=== PATIENT | male | born 1965 ===

== ENCOUNTER 2017-12-28 13:12 | Day surgery (SDC) | payer OTHER ==
[2017-12-28] MEDS ORDERED: NS 1,000 ML IV ONE ×2 (13:43→13:58)
--- NOTE | 2017-12-28 13:43 | EDPHY ---
H & P <Randolph Navarro - Last Filed: 12/28/17 17:10> Smoking Status: Never smoked <Sarabjit Cleary - Last Filed: 12/28/17 20:49> Time Seen by Provider: 12/28/17 13:42 HPI/ROS: CHIEF COMPLAINT: Penile pain, hematuria, nausea HISTORY OF PRESENT ILLNESS: Patient had similar symptoms last year was treated at [facility]. He had CT scanning which did not show renal stone or kidney abnormality was treated with 2 separate courses of antibiotics for UTI in symptoms resolved. Today around 1:00 p.m. He was sitting on the toilet trying to go to the bathroom when he felt"a pop"or that"something twisted inside me"and started having hematuria. Associated with pain in his penis and dysuria. Symptoms severe associated with nausea. The no other sites of bleeding, no vomiting, no testicular symptoms. REVIEW OF SYSTEMS: Eye: no change in vision ENT: no sore throat Cardiac: no chest pain or syncope Pulmonary: no cough or SOB Abdomen: no vomiting, diarrhea, abdominal pain Musculoskeletal: no back pain Skin: no rash Neuro: no headache Constitutional: no fever : HPI A comprehensive 10 point review of systems is otherwise negative aside from elements mentioned in the history of present illness. PAST MEDICAL HISTORY: Previous UTI, hypertension, migraine Social history: Nonsmoker General Appearance: Alert and conversant, cooperative. Eyes: No scleral icterus. ENT, Mouth: Normal mucous membranes. Respiratory: Normal respiratory effort, breath sounds equal, lungs are clear to auscultation. Cardiovascular: Regular rate and rhythm. Gastrointestinal: Abdomen is soft and only mild suprapubic tender. Normal testicles, some hematuria from meatus, otherwise normal penis. Neurological: Alert, face symmetric, normal motor and sensory in extremities. Skin: Warm and dry, no rashes. Musculoskeletal: No peripheral edema. Psychiatric: Not agitated. Emergency Department course/MDM: Zofran 4 mg IV, IV fluids, i-STAT and CT scanning, urinalysis. Accepts antiemetics, declined pain medication on initial evaluation. 1413: Records from [facility] dated 05/31/2017 personally reviewed include E coli sensitive to cephalosporin and quinolones and Zosyn but resistant to Bactrim in Unasyn and ampicillin. Negative urine for gonorrhea and chlamydia. He had CT scanning at that time which just showed thickened bladder consistent with urinary tract infection. Signed out to Melanie with imaging pending. UA shows hematuria without pyuria, doubt UTI. (Sarabjit Cleary) Constitutional: Initial Vital Signs Temperature (C) 36.7 C 12/28/17 13:28 Heart Rate 81 12/28/17 13:28 Respiratory Rate 18 12/28/17 13:28 Blood Pressure 129/85 H 12/28/17 13:28 O2 Sat (%) 95 12/28/17 13:28 O2 Delivery Mode Room Air O2 (L/minute) 10 Allergies/Adverse Reactions: codeine [Codeine] Allergy (Mild, Verified 02/27/12 10:54) STOM UPSET cephalexin monohydrate [From Keflex] Allergy (Unknown, Verified 02/27/12 10:54) STOM UPSET Home Medications: Medication Instructions Recorded Lisinopril [Zestril 5 mg (*)] 5 mg PO DAILY 02/27/12 SUMAtriptan [Imitrex Nasal [place]] 20 mg NASAL ONCE 02/27/12 NORTRIPTYLINE HCL [Pamelor 75 mg] 75 mg PO 06/21/13 Propranolol 06/21/13 Atorvastatin Calcium 20 mg DAILY 12/28/17 Hydrocodone/Acetaminophen [[place] 1 - 2 tab PO Q4H PRN #20 tab 12/28/17 5/325 (*)] Medical Decision Making - Diagnostics Imaging: Discussed imaging studies w/ scallop binder Radiologist, I viewed and interpreted images myself <Randolph Navarro - Last Filed: 12/28/17 17:10> <Sarabjit Cleary - Last Filed: 12/28/17 20:49> - Diagnostics Imaging Results: Imaging Impressions Abdomen CT 12/28/17 13:59 Impression: No evidence for hydronephrosis or nephrolithiasis. Nonspecific calcification in the prostate. No evidence for bladder calculus. Results discussed with Dr. Randolph Navarro on 28 December 2017 at 1450 hours. Cystogram 12/28/17 14:57 Impression: Posterior tear of the bulbous urethra, with extravasation of contrast into the base of the penis. Findings and recommendations discussed with Emergency Department physician, Randolph Navarro M.D., at 1610 hours, on December 28, 2017. Final report concurs with initial preliminary interpretation. ED Course/Re-evaluation: This patient was turned over to me at change of shift. I just took the CT report from Dr. Fransisco Owens. Study: CT of the abdomen and pelvis with IV contrast Indication: Painful hematuria Results: CT scan of the abdomen and pelvis was obtained. The results of the study are no acute process explaining painful hematuria. The study was read by the radiologist, Dr. Fransisco Owens. I viewed the images myself on the PACS system. This patient has painful hematuria. I will treat him with some Pyridium and recommend follow-up with Urology. There is no obvious cause of his hematuria on CT scan. There is no evidence of infection in his urinalysis. He was treated on a prior visit to [facility] for an infection causing hematuria but I clearly do not see that today. I have warned him about the potential for blood clots and if he gets urinary retention to return. Upon discussion for discharge this patient is literally in tears with pain as he urinates stating it feels like he is urinating "razorblades." I have given him some intravenous pain meds, ketorolac, and them using some 2% lidocaine jelly in his urethra. I am also ordering a retrograde urethrogram to further delineate why he feels severe pain at the base of his penis. CT scan that was performed has an unenhanced bladder. 1611: Urethrogram shows tear along posterior aspect of bulbous urethra with extravasation and poor retrograde filling. Reassessed patient and discussed findings. He has been NPO since 6am today. Plan to consult urology. 1626: Consulted with Dr. Maxwell, urology. He recommends placing Barrow and having patient follow up as an outpatient. 1645: Attempted to place Barrow catheter after medication with IV Dilaudid and lidocaine. Patient had severe pain and began screaming as soon as the catheter approached the base of his penis and gross hematuria flowed from the urethral meatus. I also met physical resistance at this point. Patient is unable to tolerate this procedure and I am concerned about passing Barrow through the rupture point without causing more damage. I also have concern that patient's bladder is becoming distended as he is unable to urinate. Urology paged. 1710: Consulted with Dr. Maxwell. He will take patient to the OR. (Randolph Navarro) Differential Diagnosis: Differential considered including but not limited to UTI, coagulopathy, renal problem, bladder problem, urethral trauma. (Sarabjit Cleary) - Data Points Laboratory Results: Laboratory Results 12/28/17 13:52 12/28/17 13:52 12/28/1718 12/28/17 13:58 13:52 13:52 WBC 5.28 10^3/uL 10^3/uL (3.80-9.50) RBC 6.32 10^6/uL 10^6/uL (4.40-6.38) Hgb 19.2 g/dL H g/dL (13.7-17.5) POC Hgb 19.0 gm/dL H gm/dL (13.7-17.5) Hct 54.1 % H % (40.0-51.0) POC Hct 56 % H % (40-51) MCV 85.6 fL fL (81.5-99.8) MCH 30.4 pg pg (27.9-34.1) MCHC 35.5 g/dL g/dL (32.4-36.7) RDW 13.2 % % (11.5-15.2) Plt Count 249 10^3/uL 10^3/uL (150-400) MPV 11.2 fL fL (8.7-11.7) Neut % (Auto) 49.9 % % (39.3-74.2) Lymph % (Auto) 40.3 % % (15.0-45.0) [place] % (Auto) 6.6 % % (4.5-13.0) Eos % (Auto) 2.1 % % (0.6-7.6) Baso % (Auto) 0.9 % % (0.3-1.7) Nucleat RBC Rel Count 0.0 % % (0.0-0.2) Absolute Neuts (auto) 2.63 10^3/uL 10^3/uL (1.70-6.50) Absolute Lymphs (auto) 2.13 10^3/uL 10^3/uL (1.00-3.00) Absolute Monos (auto) 0.35 10^3/uL 10^3/uL (0.30-0.80) Absolute Eos (auto) 0.11 10^3/uL 10^3/uL (0.03-0.40) Absolute Basos (auto) 0.05 10^3/uL 10^3/uL (0.02-0.10) Absolute Nucleated RBC 0.00 10^3/uL 10^3/uL (0-0.01) Immature Gran % 0.2 % % (0.0-1.1) Immature Gran # 0.01 10^3/uL 10^3/uL (0.00-0.10) POC Sodium 140 mEq/L mEq/L (135-145) Sodium 139 mEq/L mEq/L (135-145) POC Potassium 3.8 mEq/L mEq/L (3.3-5.0) Potassium 4.3 mEq/L mEq/L (3.5-5.2) POC Chloride 100 mEq/L mEq/L (97-110) Chloride 99 mEq/L mEq/L (97-110) Carbon Dioxide 25 mEq/l mEq/l (22-31) Anion Gap 15 mEq/L mEq/L (8-16) POC BUN 19 mg/dL mg/dL (7-23) BUN 18 mg/dL mg/dL (7-23) Creatinine 1.2 mg/dL mg/dL (0.7-1.3) POC Creatinine 1.4 mg/dL H mg/dL (0.7-1.3) Estimated GFR > 60 Glucose 98 mg/dL mg/dL (70-100) POC Glucose 107 mg/dL H mg/dL (70-100) Calcium 9.6 mg/dL mg/dL (8.5-10.4) Urine Color Urine Appearance Urine pH Ur Specific [place] Urine Protein Urine Ketones Urine Blood Urine Nitrate Urine Bilirubin Urine Urobilinogen Ur Leukocyte Esterase Urine RBC Urine WBC Ur Epithelial Cells Urine Glucose 12/28/17 11:32 WBC RBC Hgb POC Hgb Hct POC Hct MCV MCH MCHC RDW Plt Count MPV Neut % (Auto) Lymph % (Auto) [place] % (Auto) Eos % (Auto) Baso % (Auto) Nucleat RBC Rel Count Absolute Neuts (auto) Absolute Lymphs (auto) Absolute Monos (auto) Absolute Eos (auto) Absolute Basos (auto) Absolute Nucleated RBC Immature Gran % Immature Gran # POC Sodium Sodium POC Potassium Potassium POC Chloride Chloride Carbon Dioxide Anion Gap POC BUN BUN Creatinine POC Creatinine Estimated GFR Glucose POC Glucose Calcium Urine Color RED Urine Appearance CLOUDY Urine pH TNP Ur Specific [place] TNP Urine Protein TNP Urine Ketones TNP Urine Blood TNP Urine Nitrate TNP Urine Bilirubin TNP Urine Urobilinogen TNP Ur Leukocyte Esterase TNP Urine RBC 50-182 /hpf H /hpf (0-3) Urine WBC NONE SEEN /hpf /hpf (0-3) Ur Epithelial Cells NONE SEEN /lpf /lpf (NONE-1+) Urine Glucose TNP Medications Given: Discontinued Medications Hydrocodone Bitart/Acetaminophen ([place] 5/325) 1 - 2 tab PO Q4HRS PRN PRN Reason: PACU, Pain Moderate Stop: 12/28/17 20:04 Last Admin: 12/28/17 20:09 Dose: 1 tab Bupivacaine HCl (Sensorcaine 0.25% Sdv) Confirm Administered Dose 30 ml .ROUTE .STK-MED ONE Stop: 12/28/17 18:02 Last Admin: 12/28/17 18:57 Dose: Not Given Epinephrine HCl (Epinephrine) Confirm Administered Dose 1 mg .ROUTE .STK-MED ONE Stop: 12/28/17 18:03 Last Admin: 12/28/17 18:57 Dose: Not Given Fentanyl (Sublimaze) 25 - 100 mcg IVP Q5M PRN PRN Reason: PACU, IMMEDIATE Pain control Stop: 12/28/17 20:04 Last Admin: 12/28/17 19:56 Dose: 50 mcg Hydromorphone HCl (Dilaudid) 1 mg IVP EDNOW ONE Stop: 12/28/17 14:56 Last Admin: 12/28/17 15:16 Dose: 1 mg Hydromorphone HCl (Dilaudid) 1 mg IVP EDNOW ONE Stop: 12/28/17 16:46 Last Admin: 12/28/17 16:50 Dose: 1 mg Sodium Chloride (Ns) 1,000 mls @ 0 mls/hr IV ONCE ONE; Wide Open PRN Reason: Protocol Stop: 12/28/17 13:44 Last Admin: 12/28/17 15:16 Dose: 1,000 mls Sodium Chloride (Ns) 1,000 mls @ 0 mls/hr IV EDNOW ONE; Wide Open PRN Reason: Protocol Stop: 12/28/17 13:59 Last Admin: 12/28/17 15:17 Dose: 1,000 mls Lactated Ringer's (Lr) 1,000 mls @ 0 mls/hr IV ONCE ONE PRN Reason: KVO Stop: 12/28/17 17:51 Last Admin: 12/28/17 17:55 Dose: 1,000 mls Cefazolin Sodium (Cefazolin Syringe) 2 gm in 20 mls @ 200 mls/hr IVP EDNOW ONE Stop: 12/28/17 18:35 Last Admin: 12/28/17 18:26 Dose: 20 mls Ketorolac Tromethamine (Toradol) 30 mg IVP EDNOW ONE Stop: 12/28/17 14:56 Last Admin: 12/28/17 15:16 Dose: 30 mg Lidocaine (Uroject Lidocaine 2% Jelly) 20 ml UR EDNOW ONE Stop: 12/28/17 14:58 Last Admin: 12/28/17 15:20 Dose: 20 ml Lidocaine HCl (Lidocaine Hcl 1%) Confirm Administered Dose 300 mg .ROUTE .STK- MED ONE Stop: 12/28/17 18:03 Last Admin: 12/28/17 18:57 Dose: Not Given Midazolam HCl (Versed) 2 mg IVP ONCE ONE Stop: 12/28/17 18:08 Last Admin: 12/28/17 18:18 Dose: 2 mg Ondansetron HCl (Zofran) 4 mg IVP EDNOW ONE Stop: 12/28/17 13:53 Last Admin: 12/28/17 15:17 Dose: 4 mg Point of Care Test Results: 12/28/17 13:58 POC Sodium 140 POC Potassium 3.8 POC Chloride 100 POC BUN 19 POC Creatinine 1.4 H POC Glucose 107 H Departure <Randolph Navarro - Last Filed: 12/28/17 17:10> <Sarabjit Cleary - Last Filed: 12/28/17 20:49> - Departure Disposition: [facility] Inpatient Acute Clinical Impression: Nontraumatic rupture of urethra Condition: Good
[2017-12-28] MEDS ORDERED: ONDANSETRON 4 MG/2 ML VIAL IVP ONE (13:52)
[2017-12-28 14:08] LABS: PLATELET COUNT 249 10^3/uL (150-400)
[2017-12-28] MEDS ORDERED: IOPAMIDOL (ISOVUE-300) 100 ML BTL ONE (14:14)
[2017-12-28] MEDS ORDERED: KETOROLAC 30 MG/1 ML SDV IVP ONE (14:55)
[2017-12-28] MEDS ORDERED: HYDROmorphONE/DILAUDID 2 MG/ML INJ IVP ONE ×2 (14:55→16:45)
[2017-12-28] MEDS ORDERED: LIDOCAINE 2% JELLY 20 ML (UROJECT) UR ONE (14:57)
[2017-12-28] MEDS ORDERED: IOTHALAMATE MEG (CYSTO-CONRAY II) 250 ML VIAL BLADIN ONE (15:10)
[2017-12-28] MEDS ORDERED: LIDOCAINE 2% JELLY 20 ML (UROJECT) ONE (16:32)
[2017-12-28] MEDS ORDERED: HYDROmorphONE/DILAUDID 2 MG/ML INJ ONE (16:32)
--- NOTE | 2017-12-28 17:48 | PDANEPAE ---
ANE History of Present Illness 52 year old male with gross hematuria presents for cystoscopy. ANE Past Medical History - Cardiovascular History Hx Hypertension: Yes Hx Arrhythmias: No Hx Chest Pain: No Hx Coronary Artery / Peripheral Vascular Disease: Yes Hx CHF / Valvular Disease: No Hx Palpitations: No Cardiovascular History Comment: 40 % LEFT CORONARY ARTEY STENOSIS - Pulmonary History Hx COPD: No Hx Asthma/Reactive Airway Disease: No Hx Recent Upper Respiratory Infection: No Hx Oxygen in Use at Home: No Hx Sleep Apnea: No - Neurologic History Hx Cerebrovascular Accident: No Hx Seizures: No Hx Dementia: No - Endocrine History Hx Diabetes: No Hypothyroid: No Hyperthyroid: No Obesity: no - Renal History Hx Renal Disorders: No - Liver History Hx Hepatic Disorders: No - Neurological & Psychiatric Hx Hx Neurological and Psychiatric Disorders: Yes Neurological / Psychiatric History Comment: MIRGRAINES - Cancer History Hx Cancer: No - Congenital Disorder History Hx Congenital Disorders: No - GI History GERD: no Hx Gastrointestinal Disorders: No - Chronic Pain History Chronic Pain: Yes ANE Review of Systems Review of systems is: negative Review of Systems: - Exercise capacity Exercise capacity: >=4 METS METS (RN): 4 METS ANE Patient History - Allergies Allergies/Adverse Reactions: codeine [Codeine] Allergy (Mild, Verified 02/27/12 10:54) STOM UPSET cephalexin monohydrate [From Keflex] Allergy (Unknown, Verified 02/27/12 10:54) STOM UPSET - Home Medications Home medications: home medication list seen and reviewed Home Medications: Lisinopril [Zestril 5 mg (RX)] 5 mg PO DAILY 02/27/12 [Last Taken 1 Day Ago ~] SUMAtriptan [Imitrex Nasal 20 mg [place] (RX)] 20 mg NASAL ONCE 02/27/12 [Last Taken 6 Weeks Ago ~11/16/17] NORTRIPTYLINE HCL [Pamelor 75 mg] 75 mg PO 06/21/13 [Last Taken 1 Day Ago ~12/27] Propranolol 06/21/13 [Last Taken 1 Day Ago ~12/27/17] Atorvastatin Calcium 20 mg DAILY 12/28/17 [Last Taken 1 Day Ago ~12/27/17] - NPO status NPO Status: no food or drink >8 hours NPO Since - Liquids (Date): 12/28/17 NPO Since - Liquids (Time): 12:00 NPO Since - Solids (Date): 12/28/17 NPO Since - Solids (Time): 07:00 - Anes Hx Anes Hx: no prior problems - Smoking Hx Smoking Status: Never smoked Marijuana use: No - Alcohol Use Alcohol Use: None - Family Anes Hx Family Anes Hx: neg - N/A ANE Labs/Vital Signs - Labs Result Diagrams: 12/28/17 13:52 12/28/17 13:52 - Vital Signs Vital Signs: reviewed preoperatively; see RN documention for details Blood Pressure: 130/86 Heart Rate: 62 Respiratory Rate: 20 O2 Sat (%): 97 Height: 170.18 cm Weight: 81.647 kg ANE Physical Exam - Airway Neck exam: FROM Mallampati Score: Class 2 Mouth exam: normal dental/mouth exam - Pulmonary Pulmonary: no respiratory distress - Cardiovascular Cardiovascular: regular rate and rhythym - ASA Status ASA Status: II ANE Anesthesia Plan Anesthesia Plan: GA w LMA Total IV Anesthesia: No
[2017-12-28] MEDS ORDERED: LR 1,000 ML IV ONE (17:50)
[2017-12-28] MEDS ORDERED: BUPIVACAINE 0.25% 30 ML SDV ONE (18:01)
[2017-12-28] MEDS ORDERED: LIDOCAINE 1% 300 MG/30 ML SDV ONE (18:02)
[2017-12-28] MEDS ORDERED: MIDAZOLAM 2 MG/2 ML VIAL ONE (18:05)
[2017-12-28 18:06] VITALS: PULSE 62
[2017-12-28] MEDS ORDERED: MIDAZOLAM 2 MG/2 ML VIAL IVP ONE (18:07)
[2017-12-28] MEDS ORDERED: PROPOFOL 200 MG/20 ML VIAL ONE (18:10)
[2017-12-28] MEDS ORDERED: fentaNYL 100 MCG/2 ML INJ ONE ×3 (18:10→19:54)
[2017-12-28] MEDS ORDERED: ceFAZolin 2 GM/SWFI 20 ML SYR IVP ONE (18:16)
[2017-12-28] MEDS ORDERED: ceFAZolin 2 GM in NS 100 ML IV ONE (18:18)
--- NOTE | 2017-12-28 18:22 | PDGENHP ---
History and Physical - Chief Complaint unable to urinate - History of Present Illness 52 y/o with prior h/o UTI x1 presents with inability to urinate. Pt states he was moving his bowels earlier today and he felt a "pop" and his urination stopped. He then had some bleeding. He came to the ER and a RUG showed a possible urethral disruption. He denies any prior episodes. No prior stricture hx, no prior saddle trauma or STIs. Pt states his urination was otherwise normal up until today History Information - Allergies/Home Medication List Allergies/Adverse Reactions: codeine [Codeine] Allergy (Mild, Verified 02/27/12 10:54) STOM UPSET cephalexin monohydrate [From Keflex] Allergy (Unknown, Verified 02/27/12 10:54) STOM UPSET Home Medications: Lisinopril [Zestril 5 mg (RX)] 5 mg PO DAILY 02/27/12 [Last Taken 1 Day Ago ~] SUMAtriptan [Imitrex Nasal 20 mg [place] (RX)] 20 mg NASAL ONCE 02/27/12 [Last Taken 6 Weeks Ago ~11/16/17] NORTRIPTYLINE HCL [Pamelor 75 mg] 75 mg PO 06/21/13 [Last Taken 1 Day Ago ~12/27] Propranolol 06/21/13 [Last Taken 1 Day Ago ~12/27/17] Atorvastatin Calcium 20 mg DAILY 12/28/17 [Last Taken 1 Day Ago ~12/27/17] I have personally reviewed and updated: family history, medical history, social history, surgical history - Social History Smoking Status: Never smoked Alcohol Use: None Review of Systems Review of Systems: ROS: 10pt was reviewed & negative except for what was stated in HPI & below Physical Exam Physical Exam: Temp Pulse Resp BP Pulse Ox 36.5 C 62 20 130/86 H 97 12/28/17 18:08 12/28/17 18:08 12/28/17 18:08 12/28/17 18:08 12/28/17 18:08 O2 (L/minute) 2 Constitutional: no apparent distress Eyes: anicteric sclera Ears, Nose, Mouth, Throat: hearing normal Cardiovascular: regular rate and rhythym Respiratory: no respiratory distress Gastrointestinal: soft, non-tender abdomen Genitourinary: other (palpable bladder, blood at the meatus) Skin: warm, normal color Neurologic: AAOx3 Psychiatric: not anxious Lab Data & Imaging Review 12/28/17 13:52 12/28/17 13:52 WBC 5.28 10^3/uL (3.80-9.50) 12/28/17 13:52 RBC 6.32 10^6/uL (4.40-6.38) 12/28/17 13:52 Hgb 19.2 g/dL (13.7-17.5) H 12/28/17 13:52 POC Hgb 19.0 gm/dL (13.7-17.5) H 12/28/17 13:58 Hct 54.1 % (40.0-51.0) H 12/28/17 13:52 POC Hct 56 % (40-51) H 12/28/17 13:58 MCV 85.6 fL (81.5-99.8) 12/28/17 13:52 MCH 30.4 pg (27.9-34.1) 12/28/17 13:52 MCHC 35.5 g/dL (32.4-36.7) 12/28/17 13:52 RDW 13.2 % (11.5-15.2) 12/28/17 13:52 Plt Count 249 10^3/uL (150-400) 12/28/17 13:52 MPV 11.2 fL (8.7-11.7) 12/28/17 13:52 Neut % (Auto) 49.9 % (39.3-74.2) 12/28/17 13:52 Lymph % (Auto) 40.3 % (15.0-45.0) 12/28/17 13:52 [place] % (Auto) 6.6 % (4.5-13.0) 12/28/17 13:52 Eos % (Auto) 2.1 % (0.6-7.6) 12/28/17 13:52 Baso % (Auto) 0.9 % (0.3-1.7) 12/28/17 13:52 Nucleat RBC Rel Count 0.0 % (0.0-0.2) 12/28/17 13:52 Absolute Neuts (auto) 2.63 10^3/uL (1.70-6.50) 12/28/17 13:52 Absolute Lymphs (auto) 2.13 10^3/uL (1.00-3.00) 12/28/17 13:52 Absolute Monos (auto) 0.35 10^3/uL (0.30-0.80) 12/28/17 13:52 Absolute Eos (auto) 0.11 10^3/uL (0.03-0.40) 12/28/17 13:52 Absolute Basos (auto) 0.05 10^3/uL (0.02-0.10) 12/28/17 13:52 Absolute Nucleated RBC 0.00 10^3/uL (0-0.01) 12/28/17 13:52 Immature Gran % 0.2 % (0.0-1.1) 12/28/17 13:52 Immature Gran # 0.01 10^3/uL (0.00-0.10) 12/28/17 13:52 POC Sodium 140 mEq/L (135-145) 12/28/17 13:58 Sodium 139 mEq/L (135-145) 12/28/17 13:52 POC Potassium 3.8 mEq/L (3.3-5.0) 12/28/17 13:58 Potassium 4.3 mEq/L (3.5-5.2) 12/28/17 13:52 POC Chloride 100 mEq/L (97-110) 12/28/17 13:58 Chloride 99 mEq/L (97-110) 12/28/17 13:52 Carbon Dioxide 25 mEq/l (22-31) 12/28/17 13:52 Anion Gap 15 mEq/L (8-16) 12/28/17 13:52 POC BUN 19 mg/dL (7-23) 12/28/17 13:58 BUN 18 mg/dL (7-23) 12/28/17 13:52 Creatinine 1.2 mg/dL (0.7-1.3) 12/28/17 13:52 POC Creatinine 1.4 mg/dL (0.7-1.3) H 12/28/17 13:58 Estimated GFR > 60 12/28/17 13:52 Glucose 98 mg/dL (70-100) 12/28/17 13:52 POC Glucose 107 mg/dL (70-100) H 12/28/17 13:58 Calcium 9.6 mg/dL (8.5-10.4) 12/28/17 13:52 Urine Color RED 12/28/17 11:32 Urine Appearance CLOUDY 12/28/17 11:32 Urine pH TNP 12/28/17 11:32 Ur Specific [place] TNP 12/28/17 11:32 Urine Protein TNP 12/28/17 11:32 Urine Ketones TNP 12/28/17 11:32 Urine Blood TNP 12/28/17 11:32 Urine Nitrate TNP 12/28/17 11:32 Urine Bilirubin TNP 12/28/17 11:32 Urine Urobilinogen TNP 12/28/17 11:32 Ur Leukocyte Esterase TNP 12/28/17 11:32 Urine RBC 50-182 /hpf (0-3) H 12/28/17 11:32 Urine WBC NONE SEEN /hpf (0-3) 12/28/17 11:32 Ur Epithelial Cells NONE SEEN /lpf (NONE-1+) 12/28/17 11:32 Urine Glucose TNP 12/28/17 11:32 Assessment & Plan Assessment: Nontraumatic rupture of urethra (Acute) Urinary retention, ? urethral injury, hematuria Plan: TO OR emergently for cystoscopy, attempted catheter, possible dilation, possible SPT. Extensive discussion of risks, benefits, and alternatives as documented on the consent.
[2017-12-28] MEDS ORDERED: ceFAZolin 2 GM/SWFI 2 GM/20 ML SYR IVP ONE (18:30)
[2017-12-28] MEDS ORDERED: ONDANSETRON 4 MG/2 ML VIAL ONE (18:50)
[2017-12-28] MEDS ORDERED: DEXAMETHASONE 4 MG/ML VIAL ONE ×2 (18:50)
[2017-12-28] MEDS ORDERED: LR 500 ML IV PRN (19:04)
[2017-12-28] MEDS ORDERED: NALOXONE HCL 0.4 MG/ML INJ IVP PRN (19:04)
[2017-12-28] MEDS ORDERED: PHENYLEPHRINE HCL 100 MCG/ML SYR IVP PRN (19:04)
[2017-12-28] MEDS ORDERED: HYDROCODONE/APAP 5/325 TAB PO PRN (19:04)
[2017-12-28] MEDS ORDERED: ONDANSETRON 4 MG/2 ML VIAL IVP PRN (19:04)
[2017-12-28] MEDS: fentaNYL 100 MCG/2 ML INJ IVP PRN ×4 (19:19→21:00)
[2017-12-28 19:40] VITALS: TEMP 97.3
[2017-12-28] MEDS ORDERED: HYDROCODONE/APAP 5/325 TAB ONE (19:54)
[2017-12-28 21:30] VITALS: BP 115/79; RESP 12; O2SAT 92
--- NOTE | 2017-12-29 09:09 | GOP ---
[f rep st] OPERATIVE REPORT DATE OF OPERATION: 12/28/2017 SURGEON: Shania Maxwell MD INTAKE COUNSELOR: None. PREOPERATIVE DIAGNOSIS: Urinary retention. POSTOPERATIVE DIAGNOSIS: Urinary retention. PROCEDURE PERFORMED: Cystoscopy, dilation of urethra, placement of catheter. FINDINGS: INDICATIONS: The patient is a very pleasant gentleman who had sudden inability to urinate after havi ng hearing a pop in his urethra while moving his bowels. Retrograde urethrogram suggested some possi ble disruption of the urethra. Gentle attempt at passing catheter was unsuccessful, therefore I casa mmended operative intervention. Preoperatively, I had a lengthy discussion of risks, benefits and al ternatives with him and he did provide informed consent. DESCRIPTION OF PROCEDURE: After informed consent was obtained, he was taken to the operating room wh ere he was given general anesthesia. He was placed in a low lithotomy position with special attentio n to padding all bony prominences. His genitals were prepped and draped in sterile fashion. Cystosc ope was inserted into the urethra. At the bulb of the urethra there was evidence of some urethral ir ritation and mild narrowing. I did not see anything that suggested a longstanding stricture. I was able to manipulate the scope passed this area and gentle dilate it with the scope. At this point the scope was passed into the bladder. The bladder scanned 360 degrees. There were no new mucosal abno rmalities. A guidewire was placed and an 18[place] tip catheter was placed with return of co ncentrated clear urine. The balloon was inflated. He was reversed from anesthesia and sent to the r ecovery room in stable condition. There were no noted complications. No specimens and no recordable blood loss. The patient will keep the catheter in for approximately 1 week at which time he will re turn for a voiding trial. Copy requested to: PCP(No name) /[id number]/MODL
--- NOTE | 2017-12-29 16:08 | POSTANESTH ---
Post Anesthetic Evaluation Cardiovascular Status: Normal, Stable, Similar to Pre-Op Cond Respiratory Status: Normal, Stable, Similar to Pre-op Cond. Level of Consciousness/Mental Status: Can Participate in Eval, Alert and Oriented Pain Control: Adequate, Prn Tx Ordered Nausea/Vomiting Control: Adequate, Prn Tx Ordered Complications Possibly Related to Anesthesia: None Noted
== END 2017-12-28 21:13 | disposition home or self-care (01) ==
LOC: FSGY 17:26
PROVIDERS: ATTEND Urology
PROC: 0T7D8ZZ Dilation of Urethra, Via Natural or Artificial Opening Endoscopic (ICD-10-PCS; principal; 2017-12-28 18:00)
PROC: 0T9B70Z Drainage of Bladder with Drainage Device, Via Natural or Artificial Opening (ICD-10-PCS; principal; 2017-12-28 18:00)
DX: N36.8 Other specified disorders of urethra (principal); R31.9 Hematuria, unspecified; I10 Essential (primary) hypertension; E86.9 Volume depletion, unspecified; G43.909 Migraine, unspecified, not intractable, without status migrainosus; Z87.440 Personal history of urinary (tract) infections
CPT/HCPCS: 52281; 74177; 74430; 96361; 96374; 96375; 96376; 99285; C1769; 82947-QW; J0171; J0690; J1100; J1170; J1885; J2250; J2405; J2704; J3010; Q9961; Q9967